=== PATIENT | male | born 1935 | race African-American/Black ===

== ENCOUNTER 2016-04-07 14:01 | Emergency (ER) | payer OTHER ==
[~2016-04-07] VITALS: Ht 172.7 cm; Wt 65.5 kg
[~2016-04-07 14:01] MED LIST: ALLOPURINOL300 MG PO; AMLODIPINE BESY10 MG PO; CLARITIN10 M3 PO; DIOVAN320 MG PO; DOXAZOSIN MESYLA4 MG PO; FEXOFENADINE HC60 MG PO; FLONASE16 G1 BOTH NARES; FOSRENOL1000 MG PO; METOPROLOL TART50 MG PO; NITROSTAT0.4 MG SL; NORCO 5/3251 TABLET PO; PHENERGAN-CODE120 ML PO; PRAVASTATIN SOD40 MG PO; PREDNISONE20 MG PO; PREDNISONE5 MG PO; SENSIPAR30 MG PO; TOVIAZ4 MG PO; TRIPHROCAPS SOFT1 MG PO; VENTOLIN HFA18 GM IH
[2016-04-07] MEDS ORDERED: HYDRALAZINE HCL50 MG PO (15:28)
[2016-04-07] MEDS ORDERED: ISOSORBIDE MONO30 MG PO (15:28)
[2016-04-07] MEDS ORDERED: AFEDITAB CR60 MG PO (15:28)
[2016-04-07] MEDS ORDERED: NITROGLYCERIN0.4 MG SL (15:29)
[2016-04-07] MEDS ORDERED: PRAVASTATIN SOD80 MG PO (15:29)
[2016-04-07] MEDS ORDERED: FLONASE16 G1 BOTH NARES (15:29)
[2016-04-07] MEDS ORDERED: DONEPEZIL HCL5 MG PO (15:29)
[2016-04-07] MEDS ORDERED: CLONIDINE HCL0.1 MG PO (15:30)
[2016-04-07] MEDS ORDERED: VALSARTAN320 MG PO (15:30)
[2016-04-07] MEDS ORDERED: ZYLOPRIM300 MG PO (15:30)
[2016-04-07] MEDS ORDERED: B COMPLETE1 EACH PO (15:30)
[2016-04-07] MEDS ORDERED: SENSIPAR30 MG PO (15:31)
[2016-04-07] MEDS ORDERED: PREDNISONE5 MG PO (15:31)
[2016-04-07 18:27] VITALS: BP 168/62
== END 2016-04-07 18:37 | disposition home or self-care (01) ==
LOC: EME 14:01 → EXP 14:01
DX: S50.02XA Contusion of left elbow, initial encounter (principal); M25.552 Pain in left hip; M54.89 Other dorsalgia; M79.602 Pain in left arm; M25.512 Pain in left shoulder; W00.0XXA Fall on same level due to ice and snow, initial encounter; I10 Essential (primary) hypertension; Z79.82 Long term (current) use of aspirin; Z99.2 Dependence on renal dialysis; Z79.52 Long term (current) use of systemic steroids; Z87.891 Personal history of nicotine dependence
CPT/HCPCS: 72070; 73030; 73080; 73502; 99281; 99284